=== PATIENT | male | born 1990 | race Caucasian/White ===

== ENCOUNTER 2018-02-28 07:45 | Emergency (ER) | payer MEDICAID ==
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
--- NOTE | 2018-02-28 09:07 | Diagnostic Imaging Report ---
Pelvis and left hip 2 views Indication: pain Comparison: none Findings: There is evidence of plate and screw fixation of previous left pelvic fracture. No evidence of hardware loosening. No evidence of acute fracture or dislocation. There is mild prominence of bilateral femoral head/neck junctions. The bilateral hip joints are preserved. The SI joints are preserved. Impression: No evidence of an acute fracture. Evidence of previous plate and screw fixation of left pelvic fractures. No evidence of hardware loosening. Slight prominence of the bilateral femoral head/neck junctions which may predispose the patient to impingement in the appropriate clinical setting. In the setting of trauma, if clinical symptoms persist and there is continued concern for an occult fracture, follow up exams in 5-7 days is suggested.
== END 2018-02-28 08:44 | disposition home or self-care (01) ==
LOC: ER 07:45
DX: M16.12 Unilateral primary osteoarthritis, left hip (principal); F17.200 Nicotine dependence, unspecified, uncomplicated; Z96.642 Presence of left artificial hip joint
CPT/HCPCS: 73501; Z7502

== ENCOUNTER 2018-10-28 13:17 | Emergency (ER) | payer MEDICAID ==
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
== END 2018-10-28 14:25 | disposition home or self-care (01) ==
LOC: ER 13:17
DX: G89.29 Other chronic pain (principal); M25.552 Pain in left hip; F17.200 Nicotine dependence, unspecified, uncomplicated; Z96.642 Presence of left artificial hip joint
CPT/HCPCS: Z7502; Z7610